=== PATIENT | female | born 1990 | race American Indian/Alaskan Native ===

== ENCOUNTER 2018-05-03 14:56 | Emergency (ER) | payer OTHER ==
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
[2018-05-03 15:45] VITALS: BP 125/85
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
[2018-05-03] MEDS ORDERED: TORADOL IM ONE (19:30)
== END 2018-05-03 20:05 | disposition home or self-care (01) ==
LOC: ED 14:56
DX: S16.1XXA Strain of muscle, fascia and tendon at neck level, initial encounter (principal); G43.001 Migraine without aura, not intractable, with status migrainosus; V49.49XA Driver injured in collision with other motor vehicles in traffic accident, initial encounter; Y93.89 Activity, other specified; Y92.89 Other specified places as the place of occurrence of the external cause; Y99.8 Other external cause status
CPT/HCPCS: 72040; 96372; 99283; J1885

== ENCOUNTER 2018-05-17 23:32 | Emergency (ER) | payer OTHER ==
[2018-05-18 00:24] LABS: Partial Thromboplastin Time 25.5 Sec. (24.2-36.6)
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
[2018-05-18 00:29] LABS: BUN/Creatinine Ratio 14; Basophils % (Auto) 0.4 % (0.0-1.8); Blood Urea Nitrogen 10 mg/dL (7-17); Calcium 8.9 mg/dL (8.4-10.2); Eosinophils # (Auto) 0.2 K/mm3 (0.0-0.4); Eosinophils % (Auto) 2.8 % (0.0-4.3); Hematocrit 32.8 % (30.3-42.9); Hemoglobin 11.1 gm/dl (10.1-14.3); Hemolysis Index 6; Lymphocytes # (Auto) 3.2 K/mm3 (1.2-5.4); Lymphocytes % (Auto) 47.4 % (13.4-35.0); Mean Corpuscular HGB Conc 34 % (30-34); Mean Corpuscular Volume 84 fl (79-97); Monocytes # (Auto) 0.7 K/mm3 (0.0-0.8); Monocytes % (Auto) 10.3 % (0.0-7.3); Platelet Count 387 K/mm3 (140-440); Red Blood Count 3.91 M/mm3 (3.65-5.03); Red Cell Distribution Width 14.6 % (13.2-15.2)
[2018-05-18] MEDS ORDERED: XARELTO PO ONE (00:47)
[2018-05-18 04:26] VITALS: BP 102/79
== END 2018-05-18 03:43 | disposition home or self-care (01) ==
LOC: ED 23:32
DX: M79.605 Pain in left leg (principal); M79.604 Pain in right leg; M79.89 Other specified soft tissue disorders; Z86.718 Personal history of other venous thrombosis and embolism
CPT/HCPCS: 36415; 74177; 80048; 85025; 85379; 85730; 93970; 99283; Q9967

== ENCOUNTER 2018-05-18 08:41 | Emergency (ER) | payer OTHER ==
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
--- NOTE | 2018-05-18 13:35 | Vascular Lab Report ---
PROCEDURE: VL VENOUS DUPLEX LE BILAT TECHNIQUE: Grayscale and color and spectral doppler ultrasound imaging of the bilateral lower extrem ity venous system was performed. HISTORY: HISTORY OF DVT COMPARISONS: None. FINDINGS: Right lower extremity: There is partial compression of the right common femoral vein as well as the p roximal aspect of the right superficial femoral vein. The right mid to distal superficial femoral vei n, popliteal vein, posterior tibial vein and peroneal vein are patent. Note that the right common sindy ac vein stent appears occluded. Left lower extremity: The left common femoral vein is partially compressible. The left superficial fe moral vein is partially compressible. The left popliteal, posterior tibial and peroneal veins are pat ent. There is a small amount of deep venous reflux within the left common femoral and popliteal veins . Cannot visualize the left common iliac vein or stent. IMPRESSION: 1. Probable chronic, nonocclusive right lower extremity DVT involving the right common femoral and pr oximal superficial femoral vein. 2. Probable chronic DVT involving the left common femoral and superficial femoral veins. 3. Occluded right common iliac vein stent. Nonvisualized left common iliac vein stent. 4. Deep venous reflux within the left common femoral and popliteal veins. The critical results were discussed with Dr. Huang at 10:29 AM PST on 05/18/2017. This document is electronically signed by Gabrielle Long., May 18 2018 01:33:39 PM ET
--- NOTE | 2018-05-18 14:45 | Consultation ---
History of Present Illness - Reason for Consult Consult date: 05/18/18 CIV stent occlusion - History of Present Illness 27 year-old female presents to the emergency department from the vascular lab where she had a venous Doppler ultrasound with suspicion of a DVT. The patient was here last night and left at about 4 AM this morning after being seen here for her 3 day history of bilateral lower extremity swelling and pain that is mostly in the calves. She received 20 mg of Xarelto and was given an order for the venous Doppler ultrasound to be done today. She does have a previous history of DVT from about 8 years ago that occurred after the patient had a . She was on blood thinners for about 7 years until about one year ago. She has an IVC filter in place. Patient told me that 8 years ago she had a severe DVT requiring iliac stent placement and an IVC filter. IVC filter was attempted to be removed one year later but was unsuccessful. Since 8 years ago she, patient has multiple episodes of swelling and left lower extremity calf heaviness with the most recent other than the current episode episode 1 year ago. One year ago, her lower extremities were much more swollen than they are today and she was admitted with anticoagulation and discharged a few days later after laying recumbent for that period of time. She has 2 children. She is interested in having more children. Past History Past Medical History: DVT Past Surgical History: (x2), Other (ivc filter, iliac stents, failed attempt at IVC filter removal) Social history: no significant social history Family history: no significant family history Medications and Allergies Allergies Allergy/AdvReac Type Severity Reaction Status Date / Time No Known Allergies Allergy Verified 05/18/18 11:30 Home Medications Medication Instructions Recorded Confirmed Last Taken Type Ibuprofen [Motrin 600 MG tab] 600 mg PO Q8H PRN #15 tablet 05/03/18 Unknown Rx methOCARBAMOL [Robaxin TAB] 500 mg PO BID PRN #12 tab 05/03/18 Unknown Rx Review of Systems All systems: negative (see HPI) Exam - Constitutional Vitals: Temp Pulse Resp BP Pulse Ox 98 F 16 139/88 100 05/18/18 11:31 05/18/18 11:31 05/18/18 11:31 05/18/18 11:31 General appearance: Present: no acute distress - EENT Eyes: Present: EOM intact ENT: hearing intact - Respiratory Respiratory effort: normal - Extremities Extremities: pulses intact, normal temperature, normal color Extremity abnormal: edema (2-3+ edema) - Abdominal General gastrointestinal: Present: soft, non-tender - Psychiatric Psychiatric: appropriate mood/affect, cooperative Results - Imaging and Cardiology CT scan - abdomen: image reviewed Assessment and Plan 27-year-old female with history of bilateral iliac vein stenting and IVC filter with failed attempted IVC filter removal who now presents with swelling of her lower extremities with no large acute deep venous thrombus on ultrasound, but no flow visualized in the right iliac stents with poor visualization of the left iliac stent. CT scan was obtained demonstrating iliac stents extending into the infrarenal IVC up to the renal veins. The stents are thrombosed and there is some calcification suggesting chronic thrombus. There is a suprarenal IVC filter with the tip embedded in the anterior wall of the hepatic IVC. There are extensive collaterals noted. 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 The patient will need to be on anticoagulation for life. It is possible she had part of a collateral which thrombosed. Patient will need to be wearing compression hose for life. Patient was interested in becoming . I discouraged that at this time, as I told her she will need to see a information systems supervisor/oncologist to be transitioned to Lovenox injections and see a high school art teacher/GYN which should preferably be done at a tertiary care center. Do not recommend any endovascular procedures at this time. Patient will ultimately require repeated attempted IVC filter removal which may best be done at the tertiary care center where she is being transitioned to Lovenox injections.
--- NOTE | 2018-05-18 15:19 | Cat Scan Report ---
CT ABDOMEN PELVIS WITH CONTRAST: HISTORY: Swelling and pain. COMPARISON: none. TECHNIQUE: Helical CT in 1.25mm intervals following IV contrast. Sagittal and coronal reconstructions. FINDINGS: Lung bases: Normal. Liver: Normal. Biliary system: Normal. Pancreas: Normal. Spleen: Normal. Kidneys/ureters/bladder: Normal. Adrenal glands: Normal. Aorta: Normal. An IVC filter is identified superior to the renal veins. Bilateral iliac vein stents are also in position. Intestines: Within normal limits given no oral contrast was administered. Appendix: Not confidently identified, correlate with surgical history. No inflammatory changes in the right lower quadrant. Pelvic viscera: Normal. Ascites: None. Adenopathy: There are scattered borderline lymph nodes in the left para-aortic chain measuring up to 1.2 cm. No bulky adenopathy. Musculoskeletal: Normal. IMPRESSION: No acute process is identified in the abdomen or pelvis.
[2018-05-18] MEDS ORDERED: ELIQUIS PO ONE (17:00)
[2018-05-18 17:30] VITALS: BP 118/78
== END 2018-05-18 17:00 | disposition home or self-care (01) ==
LOC: ED 08:41 → VAS 08:41 → EDSTATUS 11:29 → ED 17:00
DX: I82.421 Acute embolism and thrombosis of right iliac vein (principal); Z86.718 Personal history of other venous thrombosis and embolism
CPT/HCPCS: 74177; 93970; 99283; Q9967

== ENCOUNTER 2018-10-30 19:06 | Emergency (ER) | payer OTHER ==
--- NOTE | 2018-10-30 20:27 | Event Note ---
ED Screening Note Date of service: 10/30/18 Time: 20:22 ED Screening Note: 27 y/o female comes in for vomiting and is on blood thinners and test positive for preg. Hematology sent patient to ER not able to treat with blood thinner and preg. This initial assessment/diagnostic orders/clinical plan/treatment(s) is/are subject to change based on patients health status, clinical progression and re- assessment by fellow clinical providers in the ED. Further treatment and workup at subsequent clinical providers discretion. Patient/guardian urged not to elope from the ED as their condition may be serious if not clinically assessed and managed. Initial orders include: Patient to be seen in MAIN
[2018-10-30 21:04] LABS: INR 1.01 (0.87-1.13)
[2018-10-30 21:06] LABS: Partial Thromboplastin Time 25.3 Sec. (24.2-36.6)
[2018-10-30 21:08] LABS: Basophils % (Auto) 0.3 % (0.0-1.8); Eosinophils # (Auto) 0.1 K/mm3 (0.0-0.4); Eosinophils % (Auto) 1.3 % (0.0-4.3); Hematocrit 35.9 % (30.3-42.9); Hemoglobin 12.3 gm/dl (10.1-14.3); Lymphocytes # (Auto) 2.8 K/mm3 (1.2-5.4); Lymphocytes % (Auto) 33.4 % (13.4-35.0); Mean Corpuscular HGB Conc 34 % (30-34); Mean Corpuscular Volume 83 fl (79-97); Monocytes # (Auto) 0.8 K/mm3 (0.0-0.8); Monocytes % (Auto) 9.7 % (0.0-7.3); Platelet Count 327 K/mm3 (140-440); Red Blood Count 4.32 M/mm3 (3.65-5.03)
--- NOTE | 2018-10-30 21:35 | Emergency Department Report ---
ED General Adult HPI - General Chief complaint: Nausea/Vomiting/Diarrhea Stated complaint: VOMITING//BLOOD THINNER Time Seen by Provider: 10/30/18 20:20 Source: patient Mode of arrival: Ambulatory Limitations: No Limitations - History of Present Illness Initial comments: 32 y.o. female with a history of DVT and IVC filter presents with complaint of nausea. Patient was referred to ER by her vascular physician as she had a positive test. Patient denies abdominal pain. Patient denies any vaginal bleeding. Patient denies any chest pain or shortness of breath. Patient states she last vomited 1 hour prior to arrival. Patient states that she was on eliquis but held her dosage today. - Related Data Previous Rx's Medication Instructions Recorded Last Taken Type Ibuprofen [Motrin 600 MG tab] 600 mg PO Q8H PRN #15 tablet 05/03/18 Unknown Rx methOCARBAMOL [Robaxin TAB] 500 mg PO BID PRN #12 tab 05/03/18 Unknown Rx Apixaban [Eliquis] 5 mg PO BID #74 tab 05/18/18 Unknown Rx Enoxaparin [Lovenox] 100 mg SQ Q12HR #60 syringe 10/30/18 Unknown Rx Allergies Allergy/AdvReac Type Severity Reaction Status Date / Time No Known Allergies Allergy Verified 05/18/18 11:30 ED Review of Systems ROS: Stated complaint: VOMITING//BLOOD THINNER Other details as noted in HPI Constitutional: denies: chills, fever Eyes: denies: eye pain, eye discharge, vision change ENT: denies: ear pain, throat pain Respiratory: denies: cough, shortness of breath, wheezing Cardiovascular: denies: chest pain, palpitations Endocrine: no symptoms reported Gastrointestinal: vomiting Genitourinary: denies: urgency, dysuria, discharge Musculoskeletal: denies: back pain, joint swelling, arthralgia Skin: denies: rash, lesions Neurological: denies: headache, weakness, paresthesias Psychiatric: denies: anxiety, depression Hematological/Lymphatic: denies: easy bleeding, easy bruising ED Past Medical Hx - Past Medical History Hx Hypertension: No Hx CVA: No Hx Congestive Heart Failure: No Hx Diabetes: No Hx Deep Vein Thrombosis: Yes (04/24) Hx Arthritis: No Hx Seizures: No Hx Asthma: No Additional medical history: Miscarriage x 1, lympadema - Surgical History Past Surgical History?: Yes Additional Surgical History: x 2, IVC filter - Social History Smoking Status: Never Smoker Substance Use Type: None - Medications Home Medications: Home Medications Medication Instructions Recorded Confirmed Last Taken Type Ibuprofen [Motrin 600 MG tab] 600 mg PO Q8H PRN #15 tablet 05/03/18 Unknown Rx methOCARBAMOL [Robaxin TAB] 500 mg PO BID PRN #12 tab 05/03/18 Unknown Rx Apixaban [Eliquis] 5 mg PO BID #74 tab 05/18/18 Unknown Rx Enoxaparin [Lovenox] 100 mg SQ Q12HR #60 syringe 10/30/18 Unknown Rx ED Physical Exam - General Limitations: No Limitations General appearance: alert, in no apparent distress - Head Head exam: Present: atraumatic, normocephalic - Eye Eye exam: Present: normal appearance - ENT ENT exam: Present: mucous membranes moist - Neck Neck exam: Present: normal inspection - Respiratory Respiratory exam: Present: normal lung sounds bilaterally. Absent: respiratory distress - Cardiovascular Cardiovascular Exam: Present: regular rate, normal rhythm. Absent: systolic murmur, diastolic murmur, rubs, gallop - GI/Abdominal GI/Abdominal exam: Present: soft, normal bowel sounds - Extremities Exam Extremities exam: Present: normal inspection, calf tenderness (bilaterally with no erythema appreciated) - Back Exam Back exam: Present: normal inspection - Neurological Exam Neurological exam: Present: alert, oriented X3 - Psychiatric Psychiatric exam: Present: normal affect, normal mood - Skin Skin exam: Present: warm, dry, intact, normal color. Absent: rash ED Course Vital Signs 10/30/18 10/30/18 20:17 21:51 Temperature 98.1 F 98.2 F Pulse Rate 78 71 Respiratory 18 16 Rate Blood Pressure 115/78 Blood Pressure 122/71 [Right] O2 Sat by Pulse 100 99 Oximetry ED Medical Decision Making - Lab Data Result diagrams: 10/30/18 20:38 10/30/18 Unknown - Medical Decision Making Case discussed with OB ( My exercise planner). Patient to be transitioned to Lovenox therapy. Patient made aware of need to follow up with OB. Patient has no other bodily complaints. - Differential Diagnosis DVT; Dehydration; Renal Failure Critical care attestation.: If time is entered above; I have spent that time in minutes in the direct care of this critically ill patient, excluding procedure time. ED Disposition Clinical Impression: DVT (deep vein thrombosis) in Disposition: - TO HOME OR SELFCARE Is pt being admited?: No Condition: Stable Prescriptions: Enoxaparin [Lovenox] 100 mg SQ Q12HR #60 syringe Referrals: HECTOR TUCKER MD [Primary Care Provider] - 3-5 Days LISSA WEISS MD [Staff Physician] - 3-5 Days Time of Disposition: 22:54 Print Language: BAHRAINI
[2018-10-30] MEDS ORDERED: ZOFRAN ODT PO STA (21:43)
[2018-10-30 22:35] LABS: Alanine Aminotransferase 6 units/L (7-56); Albumin 3.9 g/dL (3.9-5); BUN/Creatinine Ratio 12; Blood Urea Nitrogen 7 mg/dL (7-17); Calcium 9.5 mg/dL (8.4-10.2); Hemolysis Index 17
[2018-10-30] MEDS ORDERED: LOVENOX SUB-Q ONE (22:49)
[2018-10-30 23:24] VITALS: BP 132/62
== END 2018-10-30 23:23 | disposition home or self-care (01) ==
LOC: ED 19:06
DX: O21.9 Vomiting of pregnancy, unspecified (principal); O22.31 Deep phlebothrombosis in pregnancy, first trimester; I82.409 Acute embolism and thrombosis of unspecified deep veins of unspecified lower extremity; Z79.01 Long term (current) use of anticoagulants; Z98.890 Other specified postprocedural states; Z3A.01 Less than 8 weeks gestation of pregnancy
CPT/HCPCS: 36415; 80053; 84702; 84703; 85025; 85610; 85730; 96372; 99283; J1650; Q0162

== ENCOUNTER 2018-11-12 16:24 | Emergency (ER) | payer OTHER ==
[2018-11-12 16:31] VITALS: BP 123/72
--- NOTE | 2018-11-12 16:40 | Event Note ---
ED Screening Note Date of service: 11/12/18 Time: 16:37 ED Screening Note: 27 y o f presents with dental pain left sided states doesnt have dentist appt dec 02 states pain is aggrevating and cant wait til then This initial assessment/diagnostic orders/clinical plan/treatment(s) is/are subj ect to change based on patients health status, clinical progression and re- assessment by fellow clinical providers in the ED. Further treatment and workup at subsequent clinical providers discretion. Patient/guardian urged not to elope from the ED as their condition may be serious if not clinically assessed and managed. Initial orders include:
--- NOTE | 2018-11-12 16:44 | Emergency Department Report ---
Chief Complaint: Dental/Oral Stated Complaint: TOOTHACHE Time Seen by Provider: 11/12/18 16:36 - HPI History of Present Illness: The patient is a (XX)-year-old male who presents to ED complaining of 10/10 pain in the right side of his mouth x 5 days . Patient states that the pain started 5 days ago and has increased in severity over the last 2-3 days. The pain is exacerbated by eating and opening of the mouth. Patient states the pain is alleviated initially with pain medication but comes back. Patient states that it radiates towards ear. Patient describes a as a throbbing, pressure-like sensation. Patient states otherwise well and has no other complaints. Patient has had no fevers and no chills. No chest pain, no shortness of breath. No abdominal pain. No shortness of breath or recent trauma to the face. Dental pain - ROS Review of Systems: As noted in HPI - Exam Vital Signs: Vital Signs 11/12/18 16:28 Temperature 98.7 F Pulse Rate 78 Respiratory 18 Rate Blood Pressure 123/72 O2 Sat by Pulse 98 Oximetry Physical Exam: GENERAL: Alert and oriented x3, no apparent distress, Normal Gait, atraumatic. HEAD: Head is normocephalic and a-traumatic. SKIN: Warm and dry, No lesions, No ulceration or induration present. MSE screening note: Focused history and physical exam performed. Due to findings the following was ordered: ED Disposition for MSE Clinical Impression: Dental caries, Pain due to dental caries Disposition: DC-01 TO HOME OR SELFCARE Is pt being admited?: No Does the pt Need Aspirin: No Condition: Stable Instructions: Dental Caries (ED), Toothache (ED) Additional Instructions: follow and keep your dentist appt take medicine as prescribed continue your tylenol as needed for pain Prescriptions: Amoxicillin [Amoxicillin TAB] 875 mg PO BID #20 tablet Referrals: [facility] [Outside] - 3-[address] [facility] [Outside] - 3-5 Days Forms: Work/School Release Form(ED) Time of Disposition: 16:52
== END 2018-11-12 18:11 | disposition home or self-care (01) ==
LOC: ED 16:24
DX: K02.9 Dental caries, unspecified (principal)
CPT/HCPCS: 99282

== ENCOUNTER 2019-02-18 11:13 | Outpatient (CLI) | payer OTHER ==
[2019-02-18 11:28] VITALS: BP 120/76
[2019-02-18] MEDS ORDERED: LACTATED RINGERS 500 ML IV ONE (11:39)
--- NOTE | 2019-02-20 08:02 | Ultrasound Report ---
Limited OB Ultrasound HISTORY: need bo. TECHNIQUE: Grayscale and color Doppler imaging performed. COMPARISON: OB ultrasound from 12/04/2018 FINDINGS: There is a single intrauterine gestation which is cephalic in presentation. BO is 12. Hear t rate is 133 bpm. IMPRESSION: BO is above. Signer Name: Emir Godfrey MD Signed: 02/18/2019 12:49 PM Workstation Name: [id number]
== END 2019-02-18 12:55 | disposition home or self-care (01) ==
LOC: TRG 11:13
PROVIDERS: ATTEND Obstetrics & Gynecology
DX: O47.02 False labor before 37 completed weeks of gestation, second trimester (principal); Z3A.24 24 weeks gestation of pregnancy
CPT/HCPCS: 76815

== ENCOUNTER 2019-03-01 16:05 | Observation (INO) | payer OTHER ==
--- NOTE | 2019-03-01 16:49 | History and Physical Report ---
<SHANE HERNANDEZ - Last Filed: 03/01/19 19:29> History of Present Illness Date of admission: 03/01/19 16:05 Medications and Allergies Allergies Allergy/AdvReac Type Severity Reaction Status Date / Time No Known Allergies Allergy Verified 05/18/18 11:30 Home Medications Medication Instructions Recorded Confirmed Last Taken Type Ibuprofen [Motrin 600 MG tab] 600 mg PO Q8H PRN #15 tablet 05/03/18 Unknown Rx methOCARBAMOL [Robaxin TAB] 500 mg PO BID PRN #12 tab 05/03/18 Unknown Rx Apixaban [Eliquis] 5 mg PO BID #74 tab 05/18/18 Unknown Rx Enoxaparin [Lovenox] 100 mg SQ Q12HR #60 syringe 10/30/18 Unknown Rx Amoxicillin [Amoxicillin TAB] 875 mg PO BID #20 tablet 11/12/18 Unknown Rx Acetaminophen [Acetaminophen TAB] 650 mg PO Q6HR PRN #30 tablet 12/04/18 Unknown Rx Metoclopramide [Reglan] 10 mg PO Q6H PRN #30 tablet 12/04/18 Unknown Rx diphenhydrAMINE [Benadryl CAP] 25 mg PO Q6HR PRN #30 capsule 12/04/18 Unknown Rx Active Meds: Active Medications Oxytocin/Sodium Chloride (Pitocin/Ns 20 Unit/1000ml Drip) 20 units in 1,000 mls @ 0 mls/hr IV TITR AMADEO Lactated Ringer's (Lactated Ringers) 1,000 mls @ 2,250 mls/hr IV PREOP AMADEO Stop: 03/02/19 18:27 Cefazolin Sodium (Ancef/Sterile Water 2 Gm/20 Ml) 2 gm in 20 mls @ 80 mls/hr IV PREOP NR; Protocol Stop: 03/01/19 23:59 - Vital Signs Vital signs: Vital Signs Pulse BP 86 120/80 02/18/19 14:00 02/18/19 14:00 Temp Pulse Resp BP Pulse Ox 98.9 F 113 H 121/78 03/01/19 16:45 03/01/19 16:29 03/01/19 16:29 Results All other labs normal. Assessment and Plan - Patient Problems (1) Previous section Current Visit: Yes Status: Acute (2) DVT complicating Current Visit: Yes Status: Acute (3) 22 weeks gestation of Current Visit: Yes Status: Acute (4) demise Current Visit: Yes Status: Acute <DEMIAN NO - Last Filed: 03/01/19 19:43> History of Present Illness Date of examination: 03/01/19 (Pt tearful. My baby does not have a heartbeat) Date of admission: 03/01/19 16:05 Chief complaint: Admission after ultrasound at today's visit showed that there was no heart beat. History of present illness: EDC Confirmation: 06/23/2019 Gestational Age: 6 5/7 weeks Past History : 4 Term Births: 2 Premature Births: 0 Living Children: 2 Para: 2 Mult. Births: 0 Prev : 2 Prev. attempt? 0 Aborta: 1 Elect. Ab: 0 Spont. Ab: 1 Ectopics: 0 # 1 Delivery date: 03/2009 Weeks Gestation: term labor: no Delivery type: Sex: Female weight: 6#7 Name: Adry Comments: distress # 2 Delivery date: 04/2010 Weeks Gestation: term labor: no Delivery type: Sex: Male weight: 7#6 Name: Jr Comments: failed attempt # 3 Delivery date: 2018 Weeks Gestation: 4wks Delivery type: SAB Comments: expectant management Past Medical History: Deep Veinous Thrombosis dx 2012 after second c/s (Dr. Antunez - Vascular) Lymphedema (Dr. Davis - PT at [facility]) Past Surgical History: IVC filter and femoral stents placed 2010 Past Medical History Surgery (Non-hand ironer): IVC filter and femoral stents placed 2010 Abnormal PAP: negative Family Hx: denies family hx leslie problems or cancer Social Hx: Infection History Hx of STD: none HIV Risk Eval: low risk Hepatitis B Risk Eval: low risk Personal hx. of genital herpes: no Partner hx. of genital herpes: no Rash, Viral, or Febrile illness since last LMP? no Varicella/Chicken Pox Status: Previous Disease Genetic History Congenital Heart Defect: Mom: no Dad: no Martin Disease: Mom: no Dad: no Thalassemia Mom: no Dad: no Neural Tube Defect Mom: no Dad: no Down's Syndrome Mom: no Dad: no Arnav-Sachs Mom: no Dad: no Sickle Cell Disease/Trait Mom: no Dad: no Hemophilia Mom: no Dad: no Muscular Dystrophy Mom: no Dad: no Cystic Fibrosis Mom: no Dad: no Florence Chorea Mom: no Dad: no Mental Retardation Mom: no Dad: no Fragile X Mom: no Dad: no Other Genetic/Chromosomal Disorder Mom: no Dad: no Child w/other defect Mom: no Dad: no Enviromental Exposures Xray Exposure: no Medication, drug, or alcohol use since LMP: no Chemical/Other Exposure: no Exposure to Cat Liter: no Hx of Parvovirus (Fifth Disease): no Occupational Exposure to Children: none Current Allergies (reviewed today): No known allergies Past History Past Medical History: deep vein thrombosis Past Surgical History: section, other (femoral stents placed in 2010, previous X2.) Family/Genetic History: none Social history: - Obstetrical History Expected Date of Delivery: 06/23/19 Actual Gestation: 23 Week(s) 5 Day(s) : 4 Para: 2 Hx # Term Pregnancies: 2 Number of Pregnancies: 0 Spontaneous Abortions: 1 Induced : 0 Number of Living Children: 2 Review of Systems All systems: negative - Vital Signs Vital signs: Vital Signs Pulse BP 86 120/80 02/18/19 14:00 02/18/19 14:00 Temp Pulse Resp BP Pulse Ox 113 H 121/78 03/01/19 16:29 03/01/19 16:29 - Physical Exam Breasts: Positive: deferred Cardiovascular: Regular rate Lungs: Positive: Normal air movement Abdomen: Positive: normal appearance Genitourinary (Female): Positive: normal external genitalia, normal perenium Vulva: both: normal Vagina: Positive: normal moisture Uterus: Positive: normal size Anus/Rectum: Positive: normal perianal skin Extremities: Positive: normal Deep Tendon Reflex Grade: Normal +2 - Obstetrical Cervical Dilatation: 0 Cervical Effacement Percentage: 0 station: -4 Results All other labs normal. Assessment and Plan A: 28 y.o. @ 22 wks, discovered by ultrasound with no heart rate. P: Plan to discharge pt home with instructions. Patient to return in the AM for planned . Pt not to take nightly dose of Lovenox due to tomorrow AM. - Patient Problems (1) DVT complicating Current Visit: Yes Status: Acute Plan to address problem: Speaking with anesthesia regarding Lovenox and timing of anesthesia for surgical procedure. (2) demise Current Visit: Yes Status: Acute Plan to address problem: Official ultrasound completed to confirm no heart rate per patient request. (3) Previous section Current Visit: Yes Status: Acute Plan to address problem: Patient is a previous and will be repeat.
[2019-03-01] MEDS ORDERED: ONDANSETRON 4 MG ODT TAB ONE (17:26)
[2019-03-01] MEDS ORDERED: ACETAMINOPHEN 325 MG TAB PO ONE (17:56)
[2019-03-01] MEDS ORDERED: BICITRA ORAL LIQD 30ML PO ONE (18:00)
[2019-03-01] MEDS ORDERED: FAMOTIDINE 20 MG/2 ML INJ IV ONE (18:00)
[2019-03-01] MEDS ORDERED: LACTATED RINGERS 1,000 ML IV SCH (18:00)
[2019-03-01] MEDS ORDERED: ceFAZolin/Water 2 GM/20 ML 2 GM/20 ML SYRINGE IV NR (18:00)
[2019-03-01] MEDS ORDERED: METOCLOPRAMIDE 10 MG/2 ML INJ IV ONE (18:00)
[2019-03-01] MEDS ORDERED: OXYTOCIN 20 UNIT/1000ML DRIP 20 UNITS/1,000 ML BAG IV SCH (18:00)
--- NOTE | 2019-03-01 18:16 | Anesthesia Consultation ---
Anesthesia Consult and Med Hx Date of service: 03/01/19 - Airway Anesthetic Teeth Evaluation: Good ROM Head & Neck: Adequate Mental/Hyoid Distance: Adequate Mallampati Class: Class II Intubation Access Assessment: Probably Good - Pulmonary Exam CTA: Yes - Cardiac Exam Cardiac Exam: RRR - Pre-Operative Health Status ASA Pre-Surgery Classification: ASA3 Proposed Anesthetic Plan: Spinal - Pulmonary Hx Asthma: No - Cardiovascular System Hx Hypertension: No Hx Peripheral Vascular Disease: Yes (DVT on therapeutic lovenox + dvt filter. Last dose 03/01/19 0700) - Central Nervous System Hx Seizures: No Hx Psychiatric Problems: No - Endocrine Hx Renal Disease: No Hx Thyroid Disease: No Hx Hypothyroidism: No Hx Hyperthyroidism: No - Hematic Hx Anemia: No Hx Sickle Cell Disease: No - Other Systems Hx Alcohol Use: No Hx Obesity: Yes
[2019-03-01] MEDS ORDERED: IBUPROFEN 800 MG TAB PO ONE (18:45)
[2019-03-01] MEDS ORDERED: IBUPROFEN 600 MG TAB PO ONE (18:50)
--- NOTE | 2019-03-01 19:50 | Discharge Summary ---
Providers - Providers Date of Admission: 03/01/19 16:05 Date of discharge: 03/01/19 (pt desires d/c and [facility] in AM for surgery) Attending physician: NANY VICTORIA Primary care physician: NANY VICTORIA Hospitalization Reason for admission: demise of 22 week fetus Condition: Fair Disposition: DC-01 TO HOME OR SELFCARE - Discharge Diagnoses (1) DVT complicating Status: Acute Qualifiers: Trimester: second trimester Qualified Code(s): O22.32 - Deep phlebothrombosis in , second trimester Comment: Do NOT take Lovenox tonight nor in the AM (2) demise Status: Acute Comment: US confirmed demise Core Measure Documentation - Palliative Care Palliative Care/ Comfort Measures: Not Applicable - Core Measures Any of the following diagnoses?: history only - VTE Discharge Requirements Deep Vein Thrombosis/Pulmonary Embolism Present on Admission: No Has pt received <5 days of overlap therapy or INR<2.0: No Anticoagulant overlap therapy prescribed at discharge: No Contraindication No Overlap Therapy order at DC: Not Indicated - Acute [place] Discharge Requirements Aspirin at discharge: No Reason for no aspirin on DC: Medical contraindication KAMLA/ARB for LVSD if EF <40%: Not Applicable Reason for no KAMLA/ARB: Medical contraindication Beta dayna at discharge: No Reason for no beta dayna on DC: Medical contraindication Statin for LDL = or >100 mg/dl on DC: Not Applicable Reason for no statin on DC: Medical contraindication - Heart Failure Discharge Requirements KAMLA/ARB for LVSD if EF <40%: Not Applicable Reason for no KAMLA/ARB: Medical contraindication Beta dayna at discharge: No Reason for no beta dayna on DC: Medical contraindication - Stroke Discharge Requirements Statin for LDL = or >70 mg/dl on DC: Not Applicable Reason for no statin on DC: Not Indicated Anticoag for atrial fib/atrial flutter: Not Applicable Reason for no anticoag for AF/F on DC: Not Indicated Antithrombotic for ischemic stroke: No Reason for no antithrombotic on DC: Not Indicated Exam - Constitutional Vitals: Temp Pulse Resp BP Pulse Ox 98.9 F 113 H 18 121/78 03/01/19 16:45 03/01/19 16:29 03/01/19 19:33 03/01/19 16:29 General appearance: Present: no acute distress, well-nourished - EENT Eyes: Present: PERRL ENT: hearing intact, clear oral mucosa - Neck Neck: Present: supple, normal ROM - Respiratory Respiratory effort: normal Respiratory: bilateral: CTA - Cardiovascular Heart Sounds: Present: S1 & S2. Absent: rub, click - Extremities Extremities: pulses symmetrical, No edema Peripheral Pulses: within normal limits - Abdominal General gastrointestinal: Present: soft, non-tender, non-distended, normal bowel sounds Female genitourinary: Present: normal - Rectal Rectal Exam: deferred - Integumentary Integumentary: Present: clear, warm, dry - Musculoskeletal Musculoskeletal: gait normal, strength equal bilaterally - Psychiatric Psychiatric: appropriate mood/affect, intact judgment & insight - Neurologic Neurologic: CNII-XII intact, moves all extremities Plan Activity: advance as tolerated Weight Bearing Status: Weight Bear as Tolerated Diet: regular Follow up with: NANY VICTORIA MD [Primary Care Provider] - 03/02/19 9:00 am (Return to Labor and delivery Triage at 9:00AM tomorrow. Nothing to eat or drink after 1:00AM. Do NOT take Lovenox as per anesthesia instructions 24 hours prior to surgery. Call [phone] with any questions.)
--- NOTE | 2019-03-01 19:59 | Ultrasound Report ---
US OB follow up INDICATION / CLINICAL INFORMATION: demise. COMPARISON: 02/18/2019 FINDINGS: Single gestational sac is again demonstrated within the uterus. Cephalic presentation. Estimated gestational age is approximately 24 weeks 2 days. However, on today's exam, there is no evidence of heartbeat. IMPRESSION: 1. demise. Signer Name: Flex Montez MD Signed: 03/01/2019 7:55 PM Workstation Name: [id number]
[2019-03-02] MEDS ORDERED: FAMOTIDINE 20 MG/2 ML INJ IV ONE (07:45)
[2019-03-02] MEDS ORDERED: METOCLOPRAMIDE 10 MG/2 ML INJ IV ONE (07:45)
[2019-03-02] MEDS ORDERED: BICITRA ORAL LIQD 30ML PO ONE (07:45)
[2019-03-02] MEDS ORDERED: LACTATED RINGERS 1,000 ML IV SCH (08:00)
[2019-03-02] MEDS ORDERED: ceFAZolin/Water 2 GM/20 ML 2 GM/20 ML SYRINGE IV NR (08:00)
[2019-03-02] MEDS ORDERED: OXYTOCIN 20 UNIT/1000ML DRIP 20 UNITS/1,000 ML BAG IV SCH (08:00)
[2019-03-02] MEDS ORDERED: SODIUM CHLORIDE 0.9% IRR 1,500 ML BOTTLE IR ONE (17:47)
[2019-03-02] MEDS ORDERED: WATER FOR IRRIG STERILE 1,500 ML BOTTLE IR ONE (17:47)
[2019-03-02 21:03] VITALS: BP 116/62
[2019-03-03 00:17] LABS: Basophils % (Auto) 0.2 % (0.0-1.8); Eosinophils # (Auto) 0.1 K/mm3 (0.0-0.4); Eosinophils % (Auto) 1.1 % (0.0-4.3); Hematocrit 27.6 % (30.3-42.9); Hemoglobin 9.6 gm/dl (10.1-14.3); Lymphocytes # (Auto) 1.9 K/mm3 (1.2-5.4); Lymphocytes % (Auto) 17.5 % (13.4-35.0); Mean Corpuscular HGB Conc 35 % (30-34); Mean Corpuscular Volume 86 fl (79-97); Monocytes # (Auto) 1.4 K/mm3 (0.0-0.8); Monocytes % (Auto) 12.6 % (0.0-7.3); Platelet Count 286 K/mm3 (140-440); Red Blood Count 3.19 M/mm3 (3.65-5.03); Red Cell Distribution Width 13.7 % (13.2-15.2)
== END 2019-03-01 19:57 | disposition home or self-care (01) ==
LOC: LD 16:05 → INTOOBSV 16:05
PROVIDERS: ADMIT Obstetrics & Gynecology; ATTEND Obstetrics & Gynecology
DX: O22.32 Deep phlebothrombosis in pregnancy, second trimester (principal); O36.4XX0 Maternal care for intrauterine death, not applicable or unspecified; Z3A.22 22 weeks gestation of pregnancy; Z98.891 History of uterine scar from previous surgery
CPT/HCPCS: 36415; 76816; 85025; G0378; G0379; Q0162

== ENCOUNTER 2019-03-02 09:36 | Inpatient (IN) | payer OTHER ==
[2019-03-02] MEDS ORDERED: FAMOTIDINE 20 MG/2 ML INJ IV NR (10:30)
[2019-03-02] MEDS ORDERED: METOCLOPRAMIDE 10 MG/2 ML INJ IV NR (10:30)
[2019-03-02] MEDS ORDERED: BICITRA ORAL LIQD 30ML PO NR (10:30)
[2019-03-02 10:53] LABS: Basophils % (Auto) 0.4 % (0.0-1.8); Eosinophils # (Auto) 0.1 K/mm3 (0.0-0.4); Eosinophils % (Auto) 1.6 % (0.0-4.3); Hematocrit 30.2 % (30.3-42.9); Hemoglobin 10.6 gm/dl (10.1-14.3); Lymphocytes # (Auto) 2.2 K/mm3 (1.2-5.4); Lymphocytes % (Auto) 29.4 % (13.4-35.0); Mean Corpuscular HGB Conc 35 % (30-34); Mean Corpuscular Volume 86 fl (79-97); Monocytes % (Auto) 12.7 % (0.0-7.3); Platelet Count 334 K/mm3 (140-440); Red Cell Distribution Width 13.9 % (13.2-15.2)
[2019-03-02] MEDS ORDERED: ceFAZolin/Water 2 GM/20 ML 2 GM/20 ML SYRINGE IV NR (11:00)
[2019-03-02] MEDS ORDERED: LACTATED RINGERS 1,000 ML IV SCH (11:00)
[2019-03-02] MEDS ORDERED: OXYTOCIN 20 UNIT/1000ML DRIP 20 UNITS/1,000 ML BAG IV SCH ×2 (11:00→23:12)
[2019-03-02] MEDS ORDERED: PROMETHAZINE 25 MG TAB PO PRN (11:37)
[2019-03-02] MEDS ORDERED: HYDROmorphone 1 MG/1 ML INJ IV PRN (11:37)
[2019-03-02] MEDS ORDERED: NALOXONE 0.4 MG/1 ML INJ IV PRN ×2 (11:37→23:12)
[2019-03-02] MEDS ORDERED: ONDANSETRON 4 MG/2 ML INJ IV PRN (11:37)
[2019-03-02] MEDS ORDERED: PROMETHAZINE 25 MG RECT SUPP PR PRN (11:37)
--- NOTE | 2019-03-02 11:37 | Anesthesia Consultation ---
Anesthesia Consult and Med Hx Date of service: 03/02/19 - Airway Anesthetic Teeth Evaluation: Good ROM Head & Neck: Adequate Mental/Hyoid Distance: Adequate Mallampati Class: Class II Intubation Access Assessment: Good - Pulmonary Exam CTA: Yes - Cardiac Exam Cardiac Exam: RRR - Pre-Operative Health Status ASA Pre-Surgery Classification: ASA2 Proposed Anesthetic Plan: Spinal - Pulmonary Hx Asthma: No - Cardiovascular System Hx Hypertension: No Hx Peripheral Vascular Disease: Yes (DVT on therapeutic lovenox + dvt filter. Last dose 03/01/19 0700) - Central Nervous System Hx Seizures: No Hx Psychiatric Problems: No - Endocrine Hx Renal Disease: No Hx Thyroid Disease: No Hx Hypothyroidism: No Hx Hyperthyroidism: No - Hematic Hx Anemia: No Hx Sickle Cell Disease: No - Other Systems Hx Alcohol Use: No Hx Obesity: Yes
--- NOTE | 2019-03-02 11:45 | History and Physical Report ---
History of Present Illness Date of examination: 03/02/19 Date of admission: 03/02/19 09:36 History of present illness: Patient with IUFD diagnosed yesterday with h/o two previous sections and DVT. complicated by heart anomalies. Discussed yesterday risks of labor induction with uterine scar and repeat section patient desires C/S EDC Confirmation: 06/23/2019 Past History : 4 Term Births: 2 Premature Births: 0 Living Children: 2 Para: 2 Mult. Births: 0 Prev : 2 Prev. attempt? 0 Aborta: 1 Elect. Ab: 0 Spont. Ab: 1 Ectopics: 0 # 1 Delivery date: 03/2009 Weeks Gestation: term labor: no Delivery type: Sex: Female weight: 6#7 Name: Adry Comments: distress # 2 Delivery date: 04/2010 Weeks Gestation: term labor: no Delivery type: Sex: Male weight: 7#6 Name: Jr Comments: failed attempt # 3 Delivery date: 2017 Weeks Gestation: 4wks Delivery type: SAB Comments: expectant management Past Medical History: Deep Veinous Thrombosis dx 2011 after second c/s (Dr. Antunez - Vascular) Lymphedema (Dr. Davis - PT at [facility]) Past Surgical History: IVC filter and femoral stents placed 2010 Past Medical History Surgery (Non-marine pipe welder): IVC filter and femoral stents placed 2010 Abnormal PAP: negative Family Hx: denies family hx leslie problems or cancer Social Hx: Infection History Hx of STD: none HIV Risk Eval: low risk Hepatitis B Risk Eval: low risk Personal hx. of genital herpes: no Partner hx. of genital herpes: no Rash, Viral, or Febrile illness since last LMP? no Varicella/Chicken Pox Status: Previous Disease Genetic History Congenital Heart Defect: Mom: no Dad: no Martin Disease: Mom: no Dad: no Thalassemia Mom: no Dad: no Neural Tube Defect Mom: no Dad: no Down's Syndrome Mom: no Dad: no Arnav-Sachs Mom: no Dad: no Sickle Cell Disease/Trait Mom: no Dad: no Hemophilia Mom: no Dad: no Muscular Dystrophy Mom: no Dad: no Cystic Fibrosis Mom: no Dad: no Henderson Chorea Mom: no Dad: no Mental Retardation Mom: no Dad: no Fragile X Mom: no Dad: no Other Genetic/Chromosomal Disorder Mom: no Dad: no Child w/other defect Mom: no Dad: no Enviromental Exposures Xray Exposure: no Medication, drug, or alcohol use since LMP: no Chemical/Other Exposure: no Exposure to Cat Liter: no Hx of Parvovirus (Fifth Disease): no Occupational Exposure to Children: none Current Allergies (reviewed today): No known allergies Past History Past Medical History: deep vein thrombosis, other (See HPI) Past Surgical History: section, other (See HPI) ANALYTICAL LABORATORY TECHNICIAN History: other (See HPI) Family/Genetic History: other (See HPI) Social history: other (See HPI) - Obstetrical History Expected Date of Delivery: 06/23/19 Actual Gestation: 23 Week(s) 6 Day(s) : 4 Para: 2 Hx # Term Pregnancies: 2 Number of Pregnancies: 0 Spontaneous Abortions: 1 Induced : 0 Number of Living Children: 2 Medications and Allergies Allergies Allergy/AdvReac Type Severity Reaction Status Date / Time No Known Allergies Allergy Verified 05/18/18 11:30 Home Medications Medication Instructions Recorded Confirmed Last Taken Type Ibuprofen [Motrin 600 MG tab] 600 mg PO Q8H PRN #15 tablet 05/03/18 Unknown Rx methOCARBAMOL [Robaxin TAB] 500 mg PO BID PRN #12 tab 05/03/18 Unknown Rx Apixaban [Eliquis] 5 mg PO BID #74 tab 05/18/18 Unknown Rx Enoxaparin [Lovenox] 100 mg SQ Q12HR #60 syringe 10/30/18 Unknown Rx Amoxicillin [Amoxicillin TAB] 875 mg PO BID #20 tablet 11/12/18 Unknown Rx Acetaminophen [Acetaminophen TAB] 650 mg PO Q6HR PRN #30 tablet 12/04/18 Unknown Rx Metoclopramide [Reglan] 10 mg PO Q6H PRN #30 tablet 12/04/18 Unknown Rx diphenhydrAMINE [Benadryl CAP] 25 mg PO Q6HR PRN #30 capsule 12/04/18 Unknown Rx Active Meds: Active Medications Citric Acid/Sodium Citrate (Bicitra) 30 ml PO ONCE NR Stop: 03/02/19 16:00 Famotidine (Pepcid) 20 mg IV ONCE NR Stop: 03/02/19 16:00 Hydromorphone HCl (Dilaudid) 0.5 mg IV Q5M PRN PRN Reason: BREAK Hydromorphone HCl (Dilaudid) 0.5 mg IV Q4H PRN PRN Reason: breakthrough pain > 7/10 Oxytocin/Sodium Chloride (Pitocin/Ns 20 Unit/1000ml Drip) 20 units in 1,000 mls @ 0 mls/hr IV TITR AMADEO Lactated Ringer's (Lactated Ringers) 1,000 mls @ 2,250 mls/hr IV PREOP AMADEO Stop: 03/03/19 11:27 Cefazolin Sodium (Ancef/Sterile Water 2 Gm/20 Ml) 2 gm in 20 mls @ 80 mls/hr IV PREOP NR; Protocol Stop: 03/02/19 16:00 Fentanyl/Bupivacaine/Sodium Chlor (Fentanyl-Bupiv 2 Mcg/Ml-0.125%) 200 mcg in 100 mls @ 8 mls/hr EPIDURAL TITRATE AMADEO; Protocol Metoclopramide HCl (Reglan) 10 mg IV ONCE NR Stop: 03/02/19 16:00 Naloxone HCl (Naloxone) 0.2 mg IV Q2MIN PRN PRN Reason: Res Rate </= 8 or 02 SAT < 92% Ondansetron HCl (Zofran) 4 mg IV Q8H PRN PRN Reason: Nausea And Vomiting Promethazine HCl (Phenergan) 25 mg PO Q6H PRN PRN Reason: Nausea And Vomiting Promethazine HCl (Phenergan) 25 mg AL Q6H PRN PRN Reason: Nausea And Vomiting Sodium Chloride (Sodium Chloride Flush Syringe 10 Ml) 10 ml IV PRN NR - Physical Exam Breasts: Positive: deferred Cardiovascular: Regular rate Lungs: Positive: Clear to auscultation Abdomen: Positive: normal appearance, soft Genitourinary (Female): Positive: normal external genitalia Vagina: Positive: normal moisture Uterus: Positive: enlarged - Obstetrical Uterine Contraction Pattern: Absent Results Result Diagrams: 03/02/19 10:22 Abnormal lab results 03/02/19 Range/Units 10:22 RBC 3.50 L (3.65-5.03) M/mm3 Hct 30.2 L (30.3-42.9) % MCHC 35 H (30-34) % Dane % (Auto) 12.7 H (0.0-7.3) % Dane # 1.0 H (0.0-0.8) K/mm3 All other labs normal. Assessment and Plan - Patient Problems (1) BMI greater than 40 Current Visit: No Status: Acute (2) DVT complicating Current Visit: No Status: Acute Qualifiers: Trimester: second trimester Qualified Code(s): O22.32 - Deep phlebothrombosis in , second trimester Plan to address problem: Patient was taken Lovenox throughout the and has been off Lovenox 24 hours prior. Discussed with patient risks of having future and in a hypocoagulable state and risks of embolus including pulmonary embolus and . Discussed again with patient permanent sterilization which was a planned normal patient states that she does not want tubal ligation (3) demise Current Visit: Yes Status: Acute (4) Previous section Current Visit: No Status: Acute Plan to address problem: Risks of with possible uterine scar rupture discuss and risks of section. Patient informed the risks of the surgery include bleeding possibly bleeding heavy enough to require blood transfusion, infection possible damage to bowel bladder ureter. All questions answered. Patient agrees to proceed
[2019-03-02] MEDS ORDERED: fentaNYL-BUPIV 2 MCG/ML-0.125% 200 MCG/100 ML BAG EPIDURAL SCH (12:00)
[2019-03-02] MEDS ORDERED: BUTORPHANOL 2 MG/1 ML INJ IV ONE (12:56)
[2019-03-02] MEDS ORDERED: DEXMEDETOMIDINE 200 MCG/2 ML VIAL IV ONE (17:05)
[2019-03-02] MEDS ORDERED: ONDANSETRON 4 MG/2 ML INJ ONE (17:06)
[2019-03-02] MEDS ORDERED: MIDAZOLAM 2 MG/2 ML INJ ONE ×2 (17:22→18:28)
[2019-03-02] MEDS ORDERED: diphenhydrAMINE 50 MG/ML VIAL ONE (18:11)
[2019-03-02] MEDS ORDERED: PHENYLEPHRINE/NS 1,000 MCG/10 ML SYRINGE (OR USE) IV ONE (18:11)
[2019-03-02] MEDS ORDERED: HYDROmorphone 1 MG/1 ML INJ ONE ×2 (18:12→18:27)
--- NOTE | 2019-03-02 18:56 | Operative Report ---
Operative Report Operative Report: Date of procedure: 03/02/2019 Pre-operative diagnosis: Intrauterine at 24 weeks with intrauterine f etal demise, patient status post 2. History of deep vein thrombosis Post-operative diagnosis: Same plus pelvic adhesive disease Procedure name(s): Repeat low transverse versus a lysis of adhesions Surgeon: Abdirizak Jimenes MD Lead Pourer: Anesthesia: Spinal EBL: 1000 mL Complications: None Findings: Patient with thick adhesions between the anterior abdominal wall rectus muscle and anterior uterus. Uterus with a very thin lower uterine uterine segment could see intrauterine contents through the lower uterine segment. Male Apgars 0 and 0 with total body swelling abnormal faces and skull shape Specimen(s): Placenta Procedure: The patient was brought to the operating room. A spinal was placed without any complications. She was then placed in left lateral tilt. Prepped and draped in the usual sterile manner. After testing for adequate anesthesia level, a Pfannenstiel incision was made through her previous scar. This incision was taken down to the fascia. The fascia was then nicked in the midline. This incision was extended out laterally with Garcia scissors. The fascia was then sharply and bluntly from the underlying rectus muscles very thick scar tissue. The rectus muscles were bluntly and sharply through thick scar tissue. The peritoneum was then entered with the crude unit operator's fingers. This incision was spread vertically sharply the anterior uterus from the rectus muscles with care not to damage the bladder below. [The Merrick self-retaining tractor was then placed without any difficulty]. A t ransverse incision was made in lower uterine segment. This incision was extended laterally with the operators fingers. The amniotic sac was then entered bluntly with the crude unit operator's fingers. The was delivered from the vertex position. was obviously demised and placed in the crib. The placenta was then bluntly removed. The uterus was then externalized and wiped clean the remaining products. The uterine incision was closed in layers. The first incision was closed in a locking manner using 0 Vicryl. This was followed by imbricating stitch also with 0 Vicryl. This closure was hemostatic after additional [id number] sutures cautery. The bladder flap was copiously irrigated and found to be hemostatic. The pelvis was copiously irrigated and found to be hemostatic. The uterus was then placed back to the patient's abdomen. Surgicel was placed across the uterine closure. The retractors were removed. The rectus muscles were inspected and found to be hemostatic after Bovie and additional suture in the right rectus muscle.. The fascia was then closed in a running manner using 0 Vicryl. This incision was hemostatic irrigation Bovie. The skin was reapproximated with 4-0 Vicryl subcuticularly. Dermabond was placed over this incision. The patient tolerated procedure well. Her urine was clear. The patient was accompanied to recovery room in good condition. Instrument count correct 3
[2019-03-02] MEDS: HYDROmorphone 1 MG/1 ML INJ IV PRN ×2 (20:22→21:22)
[2019-03-02] MEDS ORDERED: MAGNESIUM HYDROXIDE (MOM) ORAL LIQD UDC PO PRN (23:12)
[2019-03-02] MEDS ORDERED: D5W/LACTATED RINGERS 1,000 ML IV SCH (23:12)
[2019-03-02] MEDS ORDERED: WITCH HAZEL/ GLYCERIN PAD TP PRN (23:12)
[2019-03-02] MEDS ORDERED: LANOLIN/ZINC/DIMETHICONE (LANSINOH) 7 GM TP PRN (23:12)
[2019-03-02] MEDS ORDERED: SIMETHICONE 80 MG CHEW TAB PO PRN (23:12)
[2019-03-03] MEDS: KETOROLAC 30 MG/1 ML INJ IV SCH ×2 (01:56→08:16)
[2019-03-03] MEDS: ceFAZolin/NS 1 GM/50 ML 1 GM/50 ML BAG IV SCH ×2 (02:06→08:16)
[2019-03-03] MEDS: HYDROcodone/ACETAMINOPHEN 5-325 MG TAB PO PRN ×4 (05:03→22:14)
[2019-03-03 08:33] LABS: Hematocrit 25.6 % (30.3-42.9)
--- NOTE | 2019-03-03 13:57 | Progress Note ---
Assessment and Plan - Patient Problems (1) Encounter for delivery without indication Current Visit: Yes Status: Acute Plan to address problem: Continue post c/s pathway (2) Anemia Current Visit: Yes Status: Acute Qualifiers: Other causes of anemia: acute posthemorrhagic Plan to address problem: start feso4 (3) demise Current Visit: Yes Status: Acute (4) BMI greater than 40 Current Visit: No Status: Acute (5) DVT complicating Current Visit: No Status: Chronic Qualifiers: Trimester: second trimester Qualified Code(s): O22.32 - Deep phlebothrombosis in , second trimester Plan to address problem: Will restart Lovenox, therapeutic dose for now (6) Lymphedema Current Visit: Yes Status: Chronic Subjective - Subjective Date of service: 03/03/19 Principal diagnosis: POD#1 repeat CS, IUFD; h/o DVT w/ IVCF, lovenox Interval history: Minimal bleeding. Patient reports: appetite normal, pain well controlled, flatus Objective - Vital Signs Latest vital signs: Vital Signs Temp Pulse Resp BP BP Pulse Ox 03/03/19 09:38 98.2 F 87 20 111/66 03/03/19 06:03 18 03/03/19 05:03 18 03/03/19 03:51 98.4 F 78 18 112/71 97 03/03/19 02:26 18 03/03/19 01:56 18 03/02/19 23:13 97.7 F 77 18 115/64 99 03/02/19 21:22 18 03/02/19 20:52 18 03/02/19 20:22 18 03/02/19 20:10 69 15 99/46 03/02/19 19:55 73 11 L 95/53 03/02/19 19:40 76 13 96/63 03/02/19 19:26 92 H 11 L 112/48 03/02/19 19:10 71 15 101/55 03/02/19 19:05 73 15 96/50 03/02/19 19:00 73 18 95/47 03/02/19 18:55 97.6 F 80 17 103/52 03/02/19 16:51 97 H 97 03/02/19 16:46 93 H 96 03/02/19 16:41 100 H 96 03/02/19 16:36 96 H 98 03/02/19 16:31 95 H 97 03/02/19 16:26 98.3 F 93 H 97 03/02/19 16:21 90 97 03/02/19 16:17 110 H 94 03/02/19 16:16 91 H 95 03/02/19 16:11 104 H 96 03/02/19 16:06 93 H 96 03/02/19 16:04 90 136/66 93 03/02/19 16:01 88 97 03/02/19 15:58 97 H 93 03/02/19 15:56 98 H 96 03/02/19 15:51 91 H 96 03/02/19 15:48 86 94 03/02/19 15:46 88 95 03/02/19 15:41 84 95 03/02/19 15:38 89 94 03/02/19 15:36 90 96 03/02/19 15:31 82 95 03/02/19 15:30 78 94 03/02/19 15:26 82 95 03/02/19 15:21 89 95 03/02/19 15:20 91 H 94 03/02/19 15:16 83 96 03/02/19 15:11 89 96 03/02/19 15:06 87 97 03/02/19 15:04 96 H 136/77 03/02/19 15:03 85 94 03/02/19 15:01 89 96 03/02/19 14:56 88 97 03/02/19 14:51 87 95 03/02/19 14:46 87 96 03/02/19 14:41 82 97 03/02/19 14:36 91 H 98 03/02/19 14:31 85 98 03/02/19 14:30 91 H 93 03/02/19 14:26 82 94 03/02/19 14:25 87 94 03/02/19 14:21 85 97 03/02/19 14:16 82 141/58 98 Intake and Output 03/02/19 03/03/19 03/03/19 22:59 06:59 14:59 Intake Total 530 240 Output Total 650 Balance -120 240 Intake: IV 50 ANCEF/NS 1 GM/50 ML 1 gm 50 In 50 ml @ 100 mls/hr IV Q8H [facility] Rx#:[id number] Oral 480 240 Output: Urine 650 Indwelling Catheter 550 Void 100 Other: Total, Intake Amount 480 240 Total, Output Amount 100 - Exam Breasts: Present: deferred Cardiovascular: Present: Regular rate Lungs: Present: Clear to auscultation Abdomen: Present: normal appearance, soft, normal bowel sounds. Absent: distention, tenderness, guarding Vulva: both: normal Uterus: Present: fundal height below umbilicus. Absent: tenderness Incision: Present: normal, dry, intact - Labs Labs: Abnormal lab results 03/03/19 Range/Units 08:12 Hgb 9.0 L (10.1-14.3) gm/dl Hct 25.6 L (30.3-42.9) %
[2019-03-03] MEDS ORDERED: ENOXAPARIN 40 MG/0.4 ML INJ SUB-Q SCH (19:00)
[2019-03-03] MEDS ORDERED: IBUPROFEN 800 MG TAB PO PRN (19:06)
[2019-03-03] MEDS: ENOXAPARIN 100 MG/1 ML INJ SUB-Q SCH (22:02)
[2019-03-04] MEDS: HYDROcodone/ACETAMINOPHEN 5-325 MG TAB PO PRN ×2 (04:32→08:23)
[2019-03-04] MEDS ORDERED: oxyCODONE /ACETAMINOPHEN 5-325MG TAB PO PRN (09:30)
[2019-03-04] MEDS ORDERED: ENOXAPARIN 40 MG/0.4 ML INJ SUB-Q SCH (10:00)
[2019-03-04] MEDS: FERROUS SULFATE 325 MG TAB PO SCH (10:22)
[2019-03-04] MEDS: ENOXAPARIN 100 MG/1 ML INJ SUB-Q SCH ×2 (10:22→23:12)
--- NOTE | 2019-03-04 10:34 | Progress Note ---
Assessment and Plan Will observe today for pain control. - Patient Problems (1) Encounter for delivery without indication Current Visit: Yes Status: Acute (2) Anemia Current Visit: Yes Status: Acute Qualifiers: Other causes of anemia: acute posthemorrhagic Plan to address problem: stable no evidence of bleeding (3) demise Current Visit: Yes Status: Acute (4) BMI greater than 40 Current Visit: No Status: Acute (5) DVT complicating Current Visit: No Status: Chronic Qualifiers: Trimester: second trimester Qualified Code(s): O22.32 - Deep phlebothrombosis in , second trimester Plan to address problem: Continue Lovenox (6) Lymphedema Current Visit: No Status: Chronic Subjective - Subjective Date of service: 03/04/19 Principal diagnosis: POD#2 repeat CS, IUFD; h/o DVT w/ IVCF, lovenox Interval history: Minimal bleeding. Still with significant pain. Patient reports: appetite normal, flatus, ambulating normally, no pain well controlled Objective - Vital Signs Latest vital signs: Vital Signs Temp Pulse Resp BP BP Pulse Ox 03/04/19 08:51 98.4 F 100 H 20 116/81 03/04/19 05:32 18 03/04/19 04:32 18 03/04/19 00:41 98.8 F 101 H 20 104/61 98 03/03/19 23:14 18 03/03/19 22:14 18 03/03/19 16:35 98.4 F 97 H 20 112/68 03/03/19 13:40 98.4 F 78 20 108/66 Intake and Output 03/03/19 03/04/19 03/04/19 22:59 06:59 14:59 Intake Total 480 360 120 Balance 480 360 120 Intake: Oral 240 120 Intake, Free Water 240 360 Other: Total, Intake Amount 240 120 # Voids Void 1 2 1 - Exam Breasts: Present: normal Cardiovascular: Present: Regular rate Lungs: Present: Clear to auscultation, Normal air movement Abdomen: Present: normal appearance, soft, normal bowel sounds. Absent: distent ion, tenderness, guarding Uterus: Present: other (unable to palpate d/t obesity). Absent: tenderness Extremities: Present: normal Incision: Present: normal, dry, intact
[2019-03-04] MEDS: oxyCODONE /ACETAMINOPHEN 5-325MG TAB PO PRN ×2 (15:38→23:19)
[2019-03-05] MEDS: oxyCODONE /ACETAMINOPHEN 5-325MG TAB PO PRN (07:55)
--- NOTE | 2019-03-05 10:02 | Discharge Summary ---
Providers - Providers Date of Admission: 03/02/19 09:36 Date of discharge: 03/05/19 (Pt desires to go home today. ) Attending physician: KARMA GAGE Primary care physician: NANY VICTORIA Hospitalization Reason for admission: section, IUFD Delivery: Procedure: section Episiotomy: none Laceration: none Incision: normal, dry, intact Other procedures: none complications: none Discharge diagnosis: intrapartum demise baby: male Hospital course: S: Pt desires to go home today. Would like to speak with vital records before d/c. RN aware and vital records will come and visit pt. States that her pain is controlled with percocet. Status positive flatus. Is ambulating voiding n ormally. O: VSS. H/H 9.0/25.6. Adequate I&O. Fundus firm, minimal bleeding noted. Incision dry, intact, with no s/sx of infection. A: 28 y.o. s/p rpt , IUFD, with hx of DVT on Lovenox P: D/c home today with instructions. Follow up in office in 1 week for incision check. Continue Lovenox 100mg BID as prescribed. Condition at discharge: Good Disposition: DC-01 TO HOME OR SELFCARE Plan - Discharge Medications Prescriptions: Ferrous Sulfate [Feosol 325 MG tab] 325 mg PO BID #60 tablet Ibuprofen [Motrin 800 MG tab] 800 mg PO Q6H PRN #30 tablet PRN Reason: Pain oxyCODONE /ACETAMINOPHEN [Percocet 5/325 mg] 1 - 2 tab PO Q4H PRN #30 tablet PRN Reason: Pain, Moderate - Provider Discharge Summary Activity: routine, no sex for 6 weeks, no heavy lifting 4 weeks, no strenuous exercise Diet: routine Instructions: routine Additional instructions: [] Smoking cessation referral if applicable(refer to patient education folder for contact #) [] Refer to [facility] Booklet Call your doctor immediately for: * Fever > 100.5 * Heavy vaginal bleeding ( >1 pad per hour) * Severe persistent headache * Shortness of breath * Reddened, hot, painful area to leg or breast * Drainage or odor from incision. * Keep incision clean and dry at all times and follow doctor's instructions regarding bathing/showering - Follow up plan Follow up: NANY VICTORIA MD [Primary Care Provider] - 7 Days (Sorry for your loss!! Please schedule an incision check visit in 1 week. Continue to take Lovenox as prescribed and follow up as instructed. If you have any questions or concerns, please call office. [address] [id number]) Forms: C Discharge Summary
[2019-03-05] MEDS ORDERED: FLU VACC QUAD 2019-20 (3 YR UP)/PF 60 MCG/0.5 ML SYRINGE IM ONE (12:00)
[2019-03-05] MEDS: ENOXAPARIN 100 MG/1 ML INJ SUB-Q SCH (12:06)
[2019-03-05] MEDS: FERROUS SULFATE 325 MG TAB PO SCH (12:06)
[2019-03-05 13:22] VITALS: BP 123/78
== END 2019-03-05 13:55 | disposition home or self-care (01) | DRG 765 ==
LOC: LD 09:36 → OB 22:17
PROVIDERS: ADMIT Obstetrics & Gynecology; ATTEND Obstetrics & Gynecology
PROC: 10D00Z1 Extraction of Products of Conception, Low, Open Approach (ICD-10-PCS; principal; 2019-03-02)
DX: O36.4XX0 Maternal care for intrauterine death, not applicable or unspecified (principal); O22.32 Deep phlebothrombosis in pregnancy, second trimester; D62 Acute posthemorrhagic anemia; O34.211 Maternal care for low transverse scar from previous cesarean delivery; O99.02 Anemia complicating childbirth; Z37.1 Single stillbirth; Z79.01 Long term (current) use of anticoagulants; Z3A.24 24 weeks gestation of pregnancy
CPT/HCPCS: 36415; 85014; 85018; 85025; 85049; 86850; 86900; 86901; 88305; 90686; G0378; J0595; J0690; J1170; J1200; J1650; J1885; J2250; J2370; J2405; J2590; J2765; J3490; J7120; J7121

== ENCOUNTER 2019-03-08 07:05 | Emergency (ER) | payer OTHER ==
[2019-03-08 07:24] VITALS: BP 145/94
--- NOTE | 2019-03-08 08:31 | Emergency Department Report ---
HPI - General Chief Complaint: Laceration/Recheck/Suture Time Seen by Provider: 03/08/19 08:21 - HPI HPI: Room 37 The patient is a 28-year-old female presenting with chief complaint of bleeding from surgical site. The patient is status post and she had demise requiring a 03/02/[address] Victoria. The patient states her C- section scar "opened up" 2 days ago and there has been blood coming from the site. Patient denies fever or purulent discharge. Patient denies change in pain. The patient states she has not yet had a chance to contact Dr. 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) Additional medical history: Miscarriage x 1, lympadema - Surgical History Past Surgical History?: No Additional Surgical History: x 2, IVC filter - Family History Family history: no significant - Social History Smoking Status: Never Smoker Substance Use Type: None - Medications Home Medications: Home Medications Medication Instructions Recorded Confirmed Last Taken Type Ibuprofen [Motrin 600 MG tab] 600 mg PO Q8H PRN #15 tablet 05/03/18 03/03/19 Unknown Rx methOCARBAMOL [Robaxin TAB] 500 mg PO BID PRN #12 tab 05/03/18 03/03/19 Unknown Rx Apixaban [Eliquis] 5 mg PO BID #74 tab 05/18/18 03/03/19 Unknown Rx Enoxaparin [Lovenox] 100 mg SQ Q12HR #60 syringe 10/30/18 03/03/19 Unknown Rx Amoxicillin [Amoxicillin TAB] 875 mg PO BID #20 tablet 11/12/18 03/03/19 Unknown Rx Acetaminophen [Acetaminophen TAB] 650 mg PO Q6HR PRN #30 tablet 12/04/18 03/03/19 Unknown Rx Metoclopramide [Reglan] 10 mg PO Q6H PRN #30 tablet 12/04/18 03/03/19 Unknown Rx diphenhydrAMINE [Benadryl CAP] 25 mg PO Q6HR PRN #30 capsule 12/04/18 03/03/19 Unknown Rx Ferrous Sulfate [Feosol 325 MG tab] 325 mg PO BID #60 tablet 03/02/19 Unknown Rx Ibuprofen [Motrin 800 MG tab] 800 mg PO Q6H PRN #30 tablet 03/02/19 Unknown Rx oxyCODONE /ACETAMINOPHEN [Percocet 1 - 2 tab PO Q4H PRN #30 tablet 03/02/19 Unknown Rx 5/325 mg] ED Review of Systems ROS: Stated complaint: WOUND BLEEDING Other details as noted in HPI Constitutional: denies: fever Eyes: denies: eye pain ENT: denies: throat pain Respiratory: no symptoms reported Cardiovascular: denies: chest pain Endocrine: no symptoms reported Gastrointestinal: abdominal pain Neurological: denies: headache Physical Exam - Physical Exam Vital Signs: Vital Signs 03/08/19 07:20 Temperature 98.3 F Pulse Rate 81 Respiratory 18 Rate Blood Pressure 145/94 O2 Sat by Pulse 98 Oximetry Physical Exam: GENERAL: The patient is well-developed well-nourished female lying on stretcher not appearing to be in acute distress. [] HEENT: Normocephalic. Atraumatic. Extraocular motions are intact. Patient has moist mucous membranes. NECK: Supple. Trachea midline CHEST/LUNGS: There is no respiratory distress noted. ABDOMEN: Abdomen is soft, with appropriate postoperative tenderness. Patient has normal bowel sounds. Low-lying scar with small amount of fresh blood overlying it at the left lateral region. No "hole" seen along surgical site SKIN: There is no rash. There is no edema. There is no diaphoresis. NEURO: The patient is awake, alert, and oriented. The patient is cooperative. The patient has normal speech MUSCULOSKELETAL:There is no evidence of acute injury. ED Course Vital Signs 03/08/19 07:20 Temperature 98.3 F Pulse Rate 81 Respiratory 18 Rate Blood Pressure 145/94 O2 Sat by Pulse 98 Oximetry - Consultations Consultation #1: 03/08/19 09:[address] Victoria. Dr. Victoria to evaluate the patient 03/08/19 09:[address] Victoria the patient may be discharged home ED Medical Decision Making - Differential Diagnosis wound dehiscence Critical care attestation.: If time is entered above; I have spent that time in minutes in the direct care of this critically ill patient, excluding procedure time. ED Disposition Clinical Impression: section wound complication Disposition: - TO HOME OR SELFCARE Is pt being admited?: No Does the pt Need Aspirin: No Condition: Stable Additional Instructions: Return to the emergency department should you develop worsening symptoms, inability to tolerate food or liquids, high fever or any other concerns Referrals: NANY VICTORIA MD [Staff Physician] - 3-5 Days Time of Disposition: 09:01
--- NOTE | 2019-03-08 09:12 | Consultation ---
History of Present Illness Consult date: 03/08/19 Reason for consult: other (Incision check) History of present illness: Patient 6 days post op with concern about some blood from incision thinking it had opened up Past History Past Medical History: other (See 03/02 admission) Past Surgical History: other (See 03/02 admission) ELECTRICAL INTERN History: other (See 03/02 admission) Family/Genetic History: other (See 03/02 admission) Social history: other (See 03/02 admission) - Obstetrical History : 4 Medications and Allergies Allergies Allergy/AdvReac Type Severity Reaction Status Date / Time No Known Allergies Allergy Verified 05/18/18 11:30 Home Medications Medication Instructions Recorded Confirmed Last Taken Type Ibuprofen [Motrin 600 MG tab] 600 mg PO Q8H PRN #15 tablet 05/03/18 03/03/19 Unknown Rx methOCARBAMOL [Robaxin TAB] 500 mg PO BID PRN #12 tab 05/03/18 03/03/19 Unknown Rx Apixaban [Eliquis] 5 mg PO BID #74 tab 05/18/18 03/03/19 Unknown Rx Enoxaparin [Lovenox] 100 mg SQ Q12HR #60 syringe 10/30/18 03/03/19 Unknown Rx Amoxicillin [Amoxicillin TAB] 875 mg PO BID #20 tablet 11/12/18 03/03/19 Unknown Rx Acetaminophen [Acetaminophen TAB] 650 mg PO Q6HR PRN #30 tablet 12/04/18 03/03/19 Unknown Rx Metoclopramide [Reglan] 10 mg PO Q6H PRN #30 tablet 12/04/18 03/03/19 Unknown Rx diphenhydrAMINE [Benadryl CAP] 25 mg PO Q6HR PRN #30 capsule 12/04/18 03/03/19 Unknown Rx Ferrous Sulfate [Feosol 325 MG tab] 325 mg PO BID #60 tablet 03/02/19 Unknown Rx Ibuprofen [Motrin 800 MG tab] 800 mg PO Q6H PRN #30 tablet 03/02/19 Unknown Rx oxyCODONE /ACETAMINOPHEN [Percocet 1 - 2 tab PO Q4H PRN #30 tablet 03/02/19 Unknown Rx 5/325 mg] - Vital Signs Vital signs: Vital Signs Temp Pulse Resp BP Pulse Ox 98.3 F 81 18 145/94 98 03/08/19 07:20 03/08/19 07:20 03/08/19 07:20 03/08/19 07:20 03/08/19 07:20 Temp Pulse Resp BP Pulse Ox 98.3 F 81 18 145/94 98 03/08/19 07:20 03/08/19 07:20 03/08/19 07:20 03/08/19 07:20 03/08/19 07:20 - Physical Exam Abdomen: Positive: normal appearance, soft, other (Healing surgical wound intact some areas incision edges overlapping due previous scariing). Negative: distention Results All other labs normal. Assessment and Plan - Patient Problems (1) Incisional irritation Status: Acute Qualifiers: Encounter type: initial encounter Qualified Code(s): T81.89XA - Other complications of procedures, not elsewhere classified, initial encounter Plan to address problem: OK for discharge follow up in my office tomrrow
== END 2019-03-08 09:35 | disposition home or self-care (01) ==
LOC: ED 07:05
DX: O72.1 Other immediate postpartum hemorrhage (principal); Z79.899 Other long term (current) drug therapy; Z98.890 Other specified postprocedural states